=== PATIENT | female | born 1950 | race Caucasian/White ===

== ENCOUNTER → 2017-06-26 | Outpatient (CLI) | payer MEDICARE, MEDICAID ==
[~2017-06-26] MED LIST: CARV6.2579; CNC30T PO; FOSR500 PO; INSU100C SQ; NPH,100V SQ; VALS40TA2
--- NOTE | 2017-06-26 15:45 | RADRPT ---
PROCEDURE: XR Right hip and pelvis. CLINICAL INDICATION: Right hip pain. Pelvic pain. TECHNIQUE: Two views. Frontal pelvis and lateral right hip. COMPARISON: 01/04/2015. FINDINGS: There is no fracture or dislocation. Vascular calcifications are present consistent with atherosclerosis. There is diffuse osteopenia. There are degenerative changes of both hips with joint space narrowing and osteophytes. There is no lytic or blastic lesion. The upper pelvis is not completely included on the image. IMPRESSION: 1. Atherosclerosis. 2. Diffuse osteopenia. 3. Degenerative changes of the hips with joint space narrowing and osteophytes. RPTAT: QQ .Holger Lagos MD, MD Date Time Electronically viewed and signed by .Holger Lagos MD, on 06/26/2017 15:45 .R/
--- NOTE | 2017-06-27 04:26 | HKNOTE ---
DATE OF SERVICE: MAIN COMPLAINT: Pain in the right hip. HISTORY OF MAIN COMPLAINT: The patient is a 67-year-old female who last saw me on 02/01/2015 compla ining of pain in her hips. She was diagnosed as having osteoarthritis of both hips, right greater t de left. I predicted that she would need a hip replacement in the near future. Surprisingly, her pain has not gotten very much worse since that time. She now comes in complaining of pain over her right greater trochanter. PRESENT COMPLAINTS: The pain in her right hip is localized to the greater trochanter. She uses a w alker at all times, but she uses it for balance rather than because of the pain. Her pain does not radiate down her leg nor to her buttocks nor to her lower back. Pain varies from day to day. She i s not able to lie on her right side. She takes Tylenol for the pain. She does not get any rest manuel n but if she turns onto her right side while she is sleeping it wakes her up. Currently, she is not taking any medications for the pain. On a level surface she can walk no more than a few yards at a time using a walker. She does limp all the time. Her leg lengths feel equal. She does not have a shoe lift. She cannot clip her toenails or tie her shoelaces. PAST ORTHOPEDIC HISTORY: PREVIOUS ORTHOPEDIC OPERATIONS: None. PRIOR CORTISONE INTAKE: One time for arthritis in her fingers. ALCOHOL INTAKE: Two drinks socially. OTHER JOINT PROBLEMS: None. BLOOD TESTS FOR ARTHRITIS: None. PRIOR INJURIES TO HIPS OR KNEES: None. WORK STATUS: Patient is retired. PAST MEDICAL HISTORY: 1. History of heart attack for which she had stent placement. 2. Chronic renal failure (dialysis 3 times a week). 3. Atrial fibrillation. 4. Diabetes. DRUG ALLERGIES. 1. CEFAZOLIN. 2. MIDAZOLAM. 3. CYCLOBENZAPRINE. 4. DILTIAZEM. 5. AMLODIPINE. 6. ALISKIREN. MEDICATIONS: 1. Humulin N 17 to 20 units twice a day. 2. Humalog 5 to 7 units as needed. 3. Eliquis 2.5 mg twice a day by mouth for her heart. 4. Denise Aspirin 81 mg once a day for her heart. 5. Amiodarone 200 mg as needed for her heart. 6. Fosrenol 1000 mg 3 times a day for her kidney. 7. Erythromycin(?) 0.5% as needed for her eyes. SYSTEMS REVIEW: Age related failing vision, history of heart attack, tingling sensations and numbne ss in the right hand. HABITS: Patient does not smoke. She drinks 2 to 3 drinks "socially". REFERRAL COORDINATOR: Dr. Jimy Wilkins, [address] [place] [address]. PHYSICAL EXAMINATION: GENERAL: A rather fragile looking 67-year-old female, looks much older than her stated age. VITAL SIGNS: Height 5 feet 6 inches. Weight 68 kg. Blood pressure 185/78, temperature 98.7. HIPS: Both hips have a full range of motion without pain. There is marked tenderness over the righ t greater trochanter. Examination of the right hip: A full range of motion without pain. Severe tenderness over the right greater trochanter extending from the superior tip of the trochanter for a bout 3 inches distally. LEFT KNEE: The left knee shows normal alignment. Active and passive extension is 0 degrees. Active and passive flexion is 135 degrees. The medial and lateral collateral ligaments and cruciate ligamen ts are intact. Blake test is negative. There is no effusion, tenderness, scarring, crepitus, or cy sts. The patella tracks normally. There is no tenderness on the articular surface of the patella or in the patellar groove. The Q angle is normal. RIGHT KNEE: The right knee shows normal alignment. Active and passive extension is 0 degrees. Activ e and passive flexion is 135 degrees. The medial and lateral collateral ligaments and cruciate ligam ents are intact. Blake test is negative. There is no effusion, tenderness, scarring, crepitus, or cysts. The patella tracks normally. There is no tenderness on the articular surface of the patella o r in the patellar groove. The Q angle is normal. IMAGING: Plain x-rays of her pelvis and hips obtained today show marked narrowing of both hip joint spaces with a minimal amount of subchondral sclerosis and intraosseous cyst formation. DIAGNOSES: 1. Trochanteric bursitis of the right hip. 2. Diabetes. 3. Atrial fibrillation. 4. Chronic renal failure. 5. History of heart attack and stent placement. MANAGEMENT: Under sterile conditions, the patient was given injection of 2 mL of Kenalog and 6 mL o f 2% lidocaine into the right trochanteric bursa. She was advised that on the knees that she has not already had to have hip replacement surgery. It is impossible to predict how long it would be before she needs hip replacement. For now all she nee ds a cortisone injection into the trochanteric bursa. Under sterile condition given injection of 2 mL of Kenalog and 6 mL of 2% lidocaine into the trochan teric bursa and she will be seen again as necessary for further evaluation and treatment. Dictated By: ANNAMARIE WHITING/ALBERTINA Conf#: [id number] DID#: [id number]
== END | disposition home or self-care (01) ==
LOC: HKI 11:02
DX: M70.61 Trochanteric bursitis, right hip (principal); E11.9 Type 2 diabetes mellitus without complications; I48.91 Unspecified atrial fibrillation; N18.9 Chronic kidney disease, unspecified; I25.2 Old myocardial infarction; Z98.61 Coronary angioplasty status; Z79.4 Long term (current) use of insulin
CPT/HCPCS: 20610; 73502; G0463